=== PATIENT | male | born 1955 | race Caucasian/White ===

== ENCOUNTER 2022-11-07 12:15 | Inpatient (IN) | payer MEDICARE ==
[~2022-11-07 12:15] MED LIST: Iopamidol 300 61% 100 ML VIAL FS ONE
[2022-11-07 12:54] LABS: Bilirubin Neg (Negative); Blood, Urine 150 (Negative); Clarity Clear (Clear); Glucose, Urine (Dipstick) Normal (Negative); Ketone, Urine Negative (Negative); Leukocyte 500 (Negative); Nitrite Negative (Negative); Protein, Urine (Dipstick) 100 mg/dl (Neg-Trace); Specific Gravity, Urine 1.015 (1.005-1.030); Urobilinogen Normal mg/dL (Less than 2)
[2022-11-07 13:03] LABS: Bacteria/HPF 3+ HPF (None Seen); CAUTI Indications for Culture Alt mental st,lethar; Mucous/LPF 1+ LPF (<2+); RBC/HPF 0-3 HPF (0-3); Squamous Epithelial 0-3 HPF (0-3); Urine Culture Reflex No No; Yeast-Budding 1+ HPF (None Seen)
[2022-11-07 13:17] LABS: Actual Bicarbonate (HCO3v) 26.5 mEq/L (22-28); Base Excess 2.9 mEq/L (-2 - +2); Calcium, Ionized (venous) 1.19 mmol/L (1.16-1.32); Chloride (VBG) 122 mmol/L (98-106); Hematocrit-VBG 45 % (42.0-52.0); Hemoglobin (Hb) 15.2 g/dL (13.1-17.2); Potassium (VBG) 4.06 mmol/L (3.70-5.30); Puncture Site Other Site; RapidComm Collect By LAB; Sodium 168.1 mmol/L (133-146)
[2022-11-07 13:19] LABS: SARS-CoV-2 NAA Rapid Test Not Detected (NotDetected)
[2022-11-07 13:21] LABS: #Basophils 0.1 10x3/uL (0.0-0.2); #Eosinphils 0.1 10x3/uL (0.0-0.5); #Monocytes 1.6 10x3/uL (0.0-1.1); #Neutrophils 14.2 10x3/uL (1.5-8.4); %Basophils 0.7 % (0.0-2.0); %Eosinophils 0.8 % (0.0-6.0); %Lymphocytes 10.8 % (18.0-47.0); %Monocytes 8.8 % (0.0-10.0); %Neutrophils 78.2 % (40.0-75.0); Hematocrit 47.7 % (38.8-50.0); Hemoglobin 14.4 g/dL (13.5-17.5); Mean Corpuscular HGB CONC 30.2 g/dL (32.0-36.0); Mean Corpuscular Hemoglobin 28.4 pg (27.0-33.0); Mean Corpuscular Volume 94.1 fl (81.2-95.1); Mean Platelet Volume 12.8 fl (7.4-10.4); Platelet Count 307 10x3/uL (150-450); RBC Distribution Width 15.7 % (11.5-14.5); Red Blood Cell (RBC) Count 5.07 10x6/uL (4.32-5.72); White Blood Cell (WBC) Count 18.2 10x3/uL (3.5-10.5)
[2022-11-07] MEDS ORDERED: Piperacillin/Tazobactam 3.375 GM VIAL ONE (13:21)
[2022-11-07] MEDS ORDERED: Acetaminophen 650 MG Suppository ONE (13:21)
[2022-11-07] MEDS ORDERED: Vancomycin 1.5 GRAM/300 ML BAG 1.5 GM in Premix Bag 1 BAG IVPB SCH (13:30)
[2022-11-07 14:22] LABS: ALT (SGPT) 32 U/L (8-55); AST (SGOT) 42 U/L (5-34); Albumin 2.7 g/dL (3.4-4.8); Alkaline Phosphatase 91 U/L (40-110); Anion Gap 20 mmol/L (10-20); BUN (Urea Nitrogen) 65 mg/dL (8.4-25.7); Bilirubin, Total 0.4 mg/dL (0.2-1.2); Calc. Creatinine Clearance 0 mL/min (70-130); Calcium 9.4 mg/dL (7.8-10.44); Carbon Dioxide 24 mmol/L (23-31); Chloride 125 mmol/L (98-107); Estimated GFR 43; Globulin 4.1 g/dL (2.4-3.5); Glucose 236 mg/dL (80-115); Potassium 3.6 mmol/L (3.5-5.1); Protein, Total 6.8 g/dL (5.8-8.1); Sodium 165 mmol/L (136-145)
[2022-11-07 16:18] LABS: Lactic Acid 2.6 mmol/L (0.5-2.2)
[2022-11-07] MEDS ORDERED: Lorazepam 2 MG/ML VIAL ONE (16:54)
[2022-11-07 18:10] LABS: Anion Gap 19 mmol/L (10-20); BUN (Urea Nitrogen) 62 mg/dL (8.4-25.7); Calc. Creatinine Clearance 0 mL/min (70-130); Calcium 9.3 mg/dL (7.8-10.44); Carbon Dioxide 21 mmol/L (23-31); Chloride 122 mmol/L (98-107); Estimated GFR 46; Glucose 324 mg/dL (80-115); Potassium 3.5 mmol/L (3.5-5.1)
[2022-11-07 18:13] LABS: Sodium 158 mmol/L (136-145)
[2022-11-07] MEDS ORDERED: levETIRAcetam 500 MG/5 ML VIAL ONE (18:32)
[2022-11-07] MEDS ORDERED: Lorazepam 2 MG/ML VIAL SLOW IVP PRN (21:09)
[2022-11-07] MEDS ORDERED: NOREPINEPHRINE 8 MG/250 ML-D5W 250 ML IVPB SCH (21:45)
[2022-11-07 22:14] LABS: Anion Gap 16 mmol/L (10-20); BUN (Urea Nitrogen) 62 mg/dL (8.4-25.7); Calc. Creatinine Clearance 0 mL/min (70-130); Calcium 9.6 mg/dL (7.8-10.44); Carbon Dioxide 25 mmol/L (23-31); Chloride 125 mmol/L (98-107); Estimated GFR 49; Glucose 233 mg/dL (80-115); Magnesium 2.5 mg/dL (1.6-2.6); Potassium 3.4 mmol/L (3.5-5.1); Sodium 163 mmol/L (136-145)
[2022-11-07] MEDS ORDERED: Budesonide 0.5 MG/2 ML NEB NEB SCH (22:15)
[2022-11-07 22:32] VITALS: BMI 30.2
[2022-11-07] MEDS ORDERED: Dextrose 5% in Water 1,000 ML IV SCH (22:45)
[2022-11-07] MEDS ORDERED: Vancomycin HCl 500 MG in Sodium Chloride 0.9% 100 ML IVPB SCH (23:00)
[2022-11-07] MEDS: Ipratropium/Albuterol 3 ML NEB NEB SCH (23:46)
[2022-11-07] MEDS: Piperacillin/Tazobactam 3.375 GM in Sodium Chloride 0.9% 100 ML IVPB SCH (23:50)
[2022-11-08 01:37] LABS: Anion Gap 15 mmol/L (10-20); BUN (Urea Nitrogen) 62 mg/dL (8.4-25.7); Calc. Creatinine Clearance 66 mL/min (70-130); Calcium 9.7 mg/dL (7.8-10.44); Carbon Dioxide 26 mmol/L (23-31); Chloride 125 mmol/L (98-107); Estimated GFR 51; Glucose 208 mg/dL (80-115); Potassium 3.4 mmol/L (3.5-5.1); Sodium 163 mmol/L (136-145)
[2022-11-08] MEDS ORDERED: Potassium Chloride 20 MEQ in Premix Bag 1 BAG IVPB SCH (04:00)
[2022-11-08 04:31] LABS: #Basophils 0.1 10x3/uL (0.0-0.2); #Eosinphils 0.6 10x3/uL (0.0-0.5); #Monocytes 1.5 10x3/uL (0.0-1.1); #Neutrophils 11.9 10x3/uL (1.5-8.4); %Basophils 0.6 % (0.0-2.0); %Eosinophils 3.6 % (0.0-6.0); %Neutrophils 73.1 % (40.0-75.0); Hematocrit 39.9 % (38.8-50.0); Hemoglobin 11.7 g/dL (13.5-17.5); Mean Corpuscular HGB CONC 29.3 g/dL (32.0-36.0); Mean Corpuscular Hemoglobin 28.2 pg (27.0-33.0); Mean Corpuscular Volume 96.1 fl (81.2-95.1); Mean Platelet Volume 12.9 fl (7.4-10.4); Platelet Count 232 10x3/uL (150-450); RBC Distribution Width 15.8 % (11.5-14.5); Red Blood Cell (RBC) Count 4.15 10x6/uL (4.32-5.72); White Blood Cell (WBC) Count 16.3 10x3/uL (3.5-10.5)
[2022-11-08] MEDS: levETIRAcetam 500 MG/5 ML VIAL SLOW IVP SCH ×2 (05:33→19:36)
[2022-11-08] MEDS ORDERED: Dextrose 5% in Water 1,000 ML IV SCH ×3 (06:00→12:30)
[2022-11-08] MEDS ORDERED: levETIRAcetam in NS 1,000 MG in Premix Bag 1 BAG IVPB SCH (07:00)
[2022-11-08] MEDS: Ipratropium/Albuterol 3 ML NEB NEB SCH ×3 (07:25→19:14)
[2022-11-08] MEDS: Budesonide 0.5 MG/2 ML NEB NEB SCH ×2 (07:25→19:24)
[2022-11-08] MEDS: Pantoprazole 40 MG VIAL IVP SCH (08:24)
[2022-11-08] MEDS ORDERED: Sodium Chloride 0.9% 100 ML ONE (08:24)
[2022-11-08] MEDS: Piperacillin/Tazobactam 3.375 GM in Sodium Chloride 0.9% 100 ML IVPB SCH ×3 (08:34→23:16)
[2022-11-08] MEDS: carBAMazepine 200 MG TAB PO SCH ×2 (08:35→20:16)
[2022-11-08 08:40] LABS: Anion Gap 17 mmol/L (10-20); BUN (Urea Nitrogen) 57 mg/dL (8.4-25.7); Calc. Creatinine Clearance 68 mL/min (70-130); Carbon Dioxide 25 mmol/L (23-31); Chloride 127 mmol/L (98-107); Estimated GFR 53; Glucose 207 mg/dL (80-115); Potassium 3.6 mmol/L (3.5-5.1); Sodium 165 mmol/L (136-145)
[2022-11-08] MEDS ORDERED: HumaLOG 300 UNITS/3 ML VIAL SC PRN (08:42)
[2022-11-08] MEDS: Acetaminophen 325 MG TAB PO PRN ×2 (08:42→16:30)
[2022-11-08] MEDS ORDERED: Glucagon 1 MG/ML KIT IM PRN (08:42)
[2022-11-08] MEDS ORDERED: Fluconazole 100 MG TAB PER TUBE SCH (09:00)
[2022-11-08 12:07] LABS: Sodium 165 mmol/L (136-145)
[2022-11-08] MEDS: HumaLOG 300 UNITS/3 ML VIAL SC PRN ×3 (12:22→20:26)
[2022-11-08] MEDS ORDERED: Vancomycin 1.5 GRAM/300 ML BAG 1.5 GM in Premix Bag 1 BAG IVPB SCH (14:00)
[2022-11-08 17:15] LABS: Sodium 163 mmol/L (136-145)
[2022-11-08] MEDS: Dextrose 5% in Water 1,000 ML IV SCH (17:48)
[2022-11-08 22:33] LABS: Anion Gap 14 mmol/L (10-20); BUN (Urea Nitrogen) 59 mg/dL (8.4-25.7); Calc. Creatinine Clearance 78 mL/min (70-130); Calcium 9.6 mg/dL (7.8-10.44); Carbon Dioxide 26 mmol/L (23-31); Chloride 122 mmol/L (98-107); Estimated GFR 61; Glucose 241 mg/dL (80-115); Potassium 3.2 mmol/L (3.5-5.1)
[2022-11-08 22:37] LABS: Sodium 159 mmol/L (136-145)
[2022-11-08] MEDS: Potassium Chloride 20 MEQ in Premix Bag 1 BAG IVPB SCH (23:18)
[2022-11-09] MEDS: Dextrose 5% in Water 1,000 ML IV SCH ×5 (00:04→23:42)
[2022-11-09] MEDS: HumaLOG 300 UNITS/3 ML VIAL SC PRN ×7 (00:15→23:42)
[2022-11-09] MEDS: Ipratropium/Albuterol 3 ML NEB NEB SCH ×4 (00:47→19:35)
[2022-11-09] MEDS: Potassium Chloride 20 MEQ in Premix Bag 1 BAG IVPB SCH (01:36)
[2022-11-09 03:36] LABS: #Basophils 0.1 10x3/uL (0.0-0.2); #Eosinphils 1.1 10x3/uL (0.0-0.5); #Monocytes 1.3 10x3/uL (0.0-1.1); #Neutrophils 13.1 10x3/uL (1.5-8.4); %Basophils 0.6 % (0.0-2.0); %Eosinophils 6.2 % (0.0-6.0); %Lymphocytes 10.5 % (18.0-47.0); %Monocytes 7.3 % (0.0-10.0); %Neutrophils 74.9 % (40.0-75.0); Hematocrit 37.3 % (38.8-50.0); Mean Corpuscular HGB CONC 29.5 g/dL (32.0-36.0); Mean Corpuscular Hemoglobin 28.3 pg (27.0-33.0); Mean Corpuscular Volume 95.9 fl (81.2-95.1); Mean Platelet Volume 12.8 fl (7.4-10.4); Platelet Count 194 10x3/uL (150-450); RBC Distribution Width 15.7 % (11.5-14.5); Red Blood Cell (RBC) Count 3.89 10x6/uL (4.32-5.72); White Blood Cell (WBC) Count 17.5 10x3/uL (3.5-10.5)
[2022-11-09 03:44] LABS: Anion Gap 16 mmol/L (10-20); BUN (Urea Nitrogen) 54 mg/dL (8.4-25.7); Calc. Creatinine Clearance 83 mL/min (70-130); Calcium 9.7 mg/dL (7.8-10.44); Carbon Dioxide 21 mmol/L (23-31); Chloride 121 mmol/L (98-107); Estimated GFR 67; Glucose 220 mg/dL (80-115); Potassium 3.8 mmol/L (3.5-5.1)
[2022-11-09 03:48] LABS: Sodium 154 mmol/L (136-145)
[2022-11-09] MEDS: levETIRAcetam 500 MG/5 ML VIAL SLOW IVP SCH ×2 (06:08→19:24)
[2022-11-09] MEDS: Budesonide 0.5 MG/2 ML NEB NEB SCH ×2 (07:15→19:25)
[2022-11-09] MEDS ORDERED: Dextrose 5% in Water 1,000 ML IV SCH (07:45)
[2022-11-09] MEDS: Pantoprazole 40 MG VIAL IVP SCH (08:28)
[2022-11-09] MEDS: carBAMazepine 200 MG TAB PO SCH ×2 (08:28→20:16)
[2022-11-09] MEDS: Piperacillin/Tazobactam 3.375 GM in Sodium Chloride 0.9% 100 ML IVPB SCH ×2 (08:28→16:36)
[2022-11-09 13:27] LABS: Anion Gap 16 mmol/L (10-20); BUN (Urea Nitrogen) 46 mg/dL (8.4-25.7); Calc. Creatinine Clearance 89 mL/min (70-130); Calcium 9.8 mg/dL (7.8-10.44); Carbon Dioxide 23 mmol/L (23-31); Chloride 121 mmol/L (98-107); Estimated GFR 73; Glucose 248 mg/dL (80-115); Potassium 3.6 mmol/L (3.5-5.1)
[2022-11-09 13:52] LABS: Sodium 156 mmol/L (136-145)
[2022-11-09] MEDS: Acetaminophen 325 MG TAB PO PRN (14:02)
[2022-11-09 18:09] LABS: Anion Gap 14 mmol/L (10-20); BUN (Urea Nitrogen) 45 mg/dL (8.4-25.7); Calc. Creatinine Clearance 92 mL/min (70-130); Calcium 9.5 mg/dL (7.8-10.44); Carbon Dioxide 23 mmol/L (23-31); Chloride 120 mmol/L (98-107); Estimated GFR 75; Glucose 301 mg/dL (80-115); Potassium 3.4 mmol/L (3.5-5.1)
[2022-11-09 18:13] LABS: Sodium 154 mmol/L (136-145)
[2022-11-09 21:31] LABS: Anion Gap 15 mmol/L (10-20); BUN (Urea Nitrogen) 43 mg/dL (8.4-25.7); Calc. Creatinine Clearance 96 mL/min (70-130); Calcium 9.5 mg/dL (7.8-10.44); Carbon Dioxide 23 mmol/L (23-31); Chloride 117 mmol/L (98-107); Estimated GFR 79; Glucose 276 mg/dL (80-115); Potassium 3.5 mmol/L (3.5-5.1)
[2022-11-09 22:04] LABS: Sodium 151 mmol/L (136-145)
[2022-11-10] MEDS: Ipratropium/Albuterol 3 ML NEB NEB SCH ×4 (00:25→18:32)
[2022-11-10 03:29] LABS: #Basophils 0.1 10x3/uL (0.0-0.2); #Eosinphils 0.8 10x3/uL (0.0-0.5); #Monocytes 0.9 10x3/uL (0.0-1.1); %Basophils 0.7 % (0.0-2.0); %Eosinophils 6.3 % (0.0-6.0); %Lymphocytes 10.5 % (18.0-47.0); %Monocytes 7.3 % (0.0-10.0); %Neutrophils 74.7 % (40.0-75.0); Hematocrit 35.6 % (38.8-50.0); Hemoglobin 10.8 g/dL (13.5-17.5); Mean Corpuscular HGB CONC 30.3 g/dL (32.0-36.0); Mean Corpuscular Hemoglobin 28.3 pg (27.0-33.0); Mean Corpuscular Volume 93.4 fl (81.2-95.1); Mean Platelet Volume 12.9 fl (7.4-10.4); Platelet Count 188 10x3/uL (150-450); RBC Distribution Width 15.4 % (11.5-14.5); Red Blood Cell (RBC) Count 3.81 10x6/uL (4.32-5.72)
[2022-11-10 03:41] LABS: Anion Gap 16 mmol/L (10-20); BUN (Urea Nitrogen) 39 mg/dL (8.4-25.7); Calc. Creatinine Clearance 110 mL/min (70-130); Calcium 9.6 mg/dL (7.8-10.44); Carbon Dioxide 23 mmol/L (23-31); Chloride 115 mmol/L (98-107); Estimated GFR 93; Glucose 245 mg/dL (80-115); Potassium 3.2 mmol/L (3.5-5.1)
[2022-11-10 03:46] LABS: Sodium 151 mmol/L (136-145)
[2022-11-10] MEDS: HumaLOG 300 UNITS/3 ML VIAL SC PRN ×5 (04:47→21:09)
[2022-11-10] MEDS: levETIRAcetam 500 MG/5 ML VIAL SLOW IVP SCH ×2 (05:53→18:30)
[2022-11-10] MEDS: Dextrose 5% in Water 1,000 ML IV SCH ×4 (06:04→20:00)
[2022-11-10] MEDS: Budesonide 0.5 MG/2 ML NEB NEB SCH ×2 (07:00→18:34)
[2022-11-10] MEDS: Piperacillin/Tazobactam 3.375 GM in Sodium Chloride 0.9% 100 ML IVPB SCH ×3 (08:23→15:13)
[2022-11-10] MEDS: carBAMazepine 200 MG TAB PO SCH ×2 (08:23→20:20)
[2022-11-10] MEDS: Pantoprazole 40 MG VIAL IVP SCH (08:23)
[2022-11-10 10:06] LABS: Anion Gap 14 mmol/L (10-20); BUN (Urea Nitrogen) 34 mg/dL (8.4-25.7); Calc. Creatinine Clearance 116 mL/min (70-130); Calcium 9.4 mg/dL (7.8-10.44); Carbon Dioxide 24 mmol/L (23-31); Chloride 115 mmol/L (98-107); Estimated GFR 96; Glucose 268 mg/dL (80-115); Potassium 3.2 mmol/L (3.5-5.1); Sodium 150 mmol/L (136-145)
[2022-11-10] MEDS: Potassium Chloride 20 MEQ TAB PO SCH ×2 (12:19→16:59)
[2022-11-10 14:46] LABS: Anion Gap 15 mmol/L (10-20); BUN (Urea Nitrogen) 31 mg/dL (8.4-25.7); Calc. Creatinine Clearance 120 mL/min (70-130); Calcium 9.3 mg/dL (7.8-10.44); Carbon Dioxide 22 mmol/L (23-31); Chloride 114 mmol/L (98-107); Estimated GFR 97; Glucose 277 mg/dL (80-115); Potassium 3.5 mmol/L (3.5-5.1); Sodium 147 mmol/L (136-145)
[2022-11-10 16:09] VITALS: BP 112/63; TEMP 99.2
[2022-11-11] MEDS: Piperacillin/Tazobactam 3.375 GM in Sodium Chloride 0.9% 100 ML IVPB SCH
[2022-11-11] MEDS: HumaLOG 300 UNITS/3 ML VIAL SC PRN (00:13)
[2022-11-11] MEDS: Ipratropium/Albuterol 3 ML NEB NEB SCH (00:55)
== END 2022-11-11 02:34 | disposition short-term general hospital (02) | DRG 871 ==
LOC: CSHERS 12:15 → CSHIMCU 16:58
PROVIDERS: ADMIT Hospitalist; ATTEND Internal Medicine
PROC: 3E03329 Introduction of Other Anti-infective into Peripheral Vein, Percutaneous Approach (ICD-10-PCS; principal; 2022-11-07)
PROC: 4A043R1 Measurement of Venous Saturation, Peripheral, Percutaneous Approach (ICD-10-PCS; 2022-11-07)
DX: A41.9 Sepsis, unspecified organism (principal); G92.8 Other toxic encephalopathy; J96.01 Acute respiratory failure with hypoxia; I63.9 Cerebral infarction, unspecified; J69.0 Pneumonitis due to inhalation of food and vomit; I13.0 Hypertensive heart and chronic kidney disease with heart failure and stage 1 through stage 4 chronic kidney disease, or unspecified chronic kidney disease; G81.94 Hemiplegia, unspecified affecting left nondominant side; N17.9 Acute kidney failure, unspecified; E87.0 Hyperosmolality and hypernatremia; E87.20 Acidosis, unspecified; E87.1 Hypo-osmolality and hyponatremia; R47.01 Aphasia; E86.0 Dehydration; R65.20 Severe sepsis without septic shock; J45.909 Unspecified asthma, uncomplicated; E11.22 Type 2 diabetes mellitus with diabetic chronic kidney disease; N18.30 Chronic kidney disease, stage 3 unspecified; G40.909 Epilepsy, unspecified, not intractable, without status epilepticus; Z20.822 Contact with and (suspected) exposure to COVID-19; L89.152 Pressure ulcer of sacral region, stage 2; I50.9 Heart failure, unspecified; G47.33 Obstructive sleep apnea (adult) (pediatric); R13.10 Dysphagia, unspecified; R82.81 Pyuria; D63.1 Anemia in chronic kidney disease; E87.6 Hypokalemia; G93.89 Other specified disorders of brain; Z88.0 Allergy status to penicillin; Z88.8 Allergy status to other drugs, medicaments and biological substances; Z79.899 Other long term (current) drug therapy; Z79.4 Long term (current) use of insulin; Z87.891 Personal history of nicotine dependence; Z80.1 Family history of malignant neoplasm of trachea, bronchus and lung; Z93.0 Tracheostomy status; Z87.820 Personal history of traumatic brain injury; Z86.718 Personal history of other venous thrombosis and embolism; F03.90 Unspecified dementia, unspecified severity, without behavioral disturbance, psychotic disturbance, mood disturbance, and anxiety; L89.322 Pressure ulcer of left buttock, stage 2; Z93.1 Gastrostomy status; Z93.6 Other artificial openings of urinary tract status; Z82.49 Family history of ischemic heart disease and other diseases of the circulatory system
CPT/HCPCS: 36415; 36416; 70450; 70551; 71045; 74177; 80048; 80053; 81001; 82805; 83605; 83735; 85025; 87040; 87070; 87077; 87086; 87149; 87205; 93005; 93010; 94640; 94760; 94762; 97139; C9113; J1650; J1953; J2060; J2543; J3370; J3480; J3490; J7070; J7620; J7626; Q9967